=== PATIENT | male | born 1990 | race Caucasian/White ===

== ENCOUNTER → 2021-08-23 16:36 | Outpatient (CLI) | payer BC, SELFPAY ==
--- NOTE | ~2021-08-23 | XR_ITS ---
EXAMINATION: XR foot RT min 3V DATE: 08/23/2021 16:59 INDICATION: Right foot pain TECHNIQUE: Dorsoplantar, lateral, and 2 oblique views of the right foot were obtained. COMPARISON: None. FINDINGS: There is no fracture, dislocation, or subluxation. The bones, soft tissues, and joint space s are normal. IMPRESSION: 1. No acute osseous abnormality. Reviewed, dictated and finalized at location F. 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
== END ==
DX: M79.671 Pain in right foot (principal)
CPT/HCPCS: 73630

== ENCOUNTER 2023-11-02 21:52 | Emergency (ER) | payer BC, SELFPAY ==
--- NOTE | ~2023-11-02 | XR_ITS ---
Right Hand Technique: PA, oblique, and lateral views were obtained. Clinical History: Dog bite, pain Findings: There is an acute minimally displaced fracture of the ulnar aspect of the second carpal hea d, essentially nondisplaced. No other fracture or dislocation seen.. Joint spaces are preserved. Soft tissues are unremarkable. Impression: Acute, minimally displaced fracture of the ulnar aspect of the second metacarpal head. No intra-artic ular extension. Reviewed, dictated and finalized at location M. Impression: Acute, minimally displaced fracture of the ulnar aspect of the second metacarpa l head. No intra-articular extension.
[2023-11-02 22:11] VITALS: BP 105/90; PULSE 60; RESP 16; TEMP 36.2; O2SAT 100
--- NOTE | 2023-11-03 03:30 | PC.NURSE ---
0330 Dr. Pinky chacko for a right short arm splint.
[2023-11-03] MEDS: TETANUS,DIPHTHERIA,AC PERTUSSIS ADULT (0.5 ML) BOOSTRIX IM (03:45)
[2023-11-03] MEDS: AMOXICILLIN/CLAVULANATE K 875-125 MG TAB 1 TABLET PO (03:45)
[2023-11-03] MEDS: HYDROcodone/acetaminophen (*CRX) 5-325 MG TABLET 1 TAB PO (03:45)
--- NOTE | 2023-11-03 04:38 | ED.GENADULT ---
HPI - General Adult General Chief complaint: Animal Bite Stated complaint: animal bite Time Seen by Provider: 11/03/23 03:13 History of Present Illness HPI narrative: Patient surgery old gentleman presents emerged [place] complaint dog bite to right hand patient reports unsure of last tetanus shot patient reports the dogs are up-to-date on their vaccination Related Data Allergies Allergy/AdvReac Type Severity Reaction Status Date / Time sulindac Allergy Hives Verified 11/02/23 21:52 Review of Systems Review of Systems: A 10 system review of systems was completed on the patient and is negative except for what is stated in the HPI. Nursing and ancillary documentation was reviewed. Exam Narrative: GENERAL: Well-appearing, well-nourished, and in no acute distress. HEAD: Normocephalic, atraumatic. EYES: PERRLA and EOMI. ENT: Nares clear, no rhinorrhea or epistaxis. Mucous membranes moist. NECK: Supple. CHEST: Clear to auscultation. No respiratory distress. HEART: Regular rate and rhythm. No murmur heard. Normal peripheral pulses. ABDOMEN: Soft, nontender, nondistended, normal active bowel sounds. EXTREMITIES: Normal range of motion. No edema. SKIN: Warm, dry, no rash. Tenderness to palpation at the 2nd metacarpal. There are multiple puncture wounds to the hand NEURO: No focal deficits. Alert and oriented x3. PSYCH: Normal mood and affect. Course Vital Signs Vital signs: Vital Signs Temperature 36.2 C L 11/02/23 22:11 Pulse Rate 60 11/02/23 22:11 Respiratory Rate 16 11/02/23 22:11 Blood Pressure 105/90 11/02/23 22:11 Pulse Oximetry 100 11/02/23 22:11 Oxygen Delivery Room Air 11/02/23 22:11 Temperature 36.2 C L 11/02/23 22:11 Pulse Rate 60 11/02/23 22:11 Respiratory Rate 16 11/02/23 22:11 Blood Pressure 105/90 11/02/23 22:11 Pulse Oximetry 100 11/02/23 22:11 Oxygen Delivery Room Air 11/02/23 22:11 Medical Decision Making [facility] Narrative Medical decision making narrative: Differential diagnosis includes dog bite, fracture, foreign body Plain film x-rays of the right hand showed evidence of a fracture of the 2nd metacarpal. There were no foreign bodies noted on exam The patient was given Augmentin and pain control the patient will be placed in a radial gutter splint the case was discussed with [facility] plastics who was on-call for Hand surgery and the patient should follow-up in 1 week. Vital Signs Vital Signs: Vital Signs Temperature 36.2 C L 11/02/23 22:11 Pulse Rate 60 11/02/23 22:11 Respiratory Rate 16 11/02/23 22:11 Blood Pressure 105/90 11/02/23 22:11 Pulse Oximetry 100 11/02/23 22:11 Oxygen Delivery Room Air 11/02/23 22:11 Temperature 36.2 C L 11/02/23 22:11 Pulse Rate 60 11/02/23 22:11 Respiratory Rate 16 11/02/23 22:11 Blood Pressure 105/90 11/02/23 22:11 Pulse Oximetry 100 11/02/23 22:11 Oxygen Delivery Room Air 11/02/23 22:11 Discharge Plan Discharge Clinical Impression: Dog bite, Fracture of second metacarpal bone Patient Disposition: Home, Self-Care Condition: Stable Instructions: Antibiotic Form, Animal Bite (ED), Puncture Wound (ED), Splint Care (ED) Additional Instructions: Please follow-up with the [facility] plastics clinic Dr Russell please call [phone] to schedule an appointment. You are unable to get through with that number please call [phone] press 0 and ask for the plastic surgery clinic. Prescriptions: New amoxicillin-pot clavulanate 875-125 mg tablet 1 tablet PO Q12H 10 Days Qty: 20 0RF hydrocodone-acetaminophen 5-325 mg tablet 1 tablet PO Q6H PRN (Reason: pain) 3 Days Qty: 12 0RF Follow-up/Referrals: Derek Cassidy MD [Physician] - UNKNOWN,DOCTOR [Primary Care Provider] - Time of Disposition: 04:46
== END 2023-11-03 05:27 | disposition home or self-care (01) ==
PROVIDERS: Emergency Provider Emergency Medicine
DX: S62.300A Unspecified fracture of second metacarpal bone, right hand, initial encounter for closed fracture (principal); S61.451A Open bite of right hand, initial encounter; W54.0XXA Bitten by dog, initial encounter; Z23 Encounter for immunization
CPT/HCPCS: 29125; 73130; 90471; 90715; 99284; A9270